=== PATIENT | female | born 1950 | race Caucasian/White ===

== ENCOUNTER → 2019-07-30 | Outpatient (CLI) | payer OTHER ==
--- NOTE | 2019-07-30 12:52 | RAD ---
EXAM: CHEST PA LATERAL INDICATION: Cough, history of breast cancer.. TECHNIQUE: PA and lateral views COMPARISON: None FINDINGS: The heart size is normal. The great vessels appear unremarkable. There is no hilar or mediastinal mass. The lungs are clear. There is no pleural effusion or pneumothorax. There are no significant osseous abnormalities. Chest soft tissues show surgical clips in the right breast and axilla. IMPRESSION: No active cardiopulmonary disease, status post right lumpectomy and axillary surgery. Electronically signed by: Ruma Jennings MD (07/30/2019 12:49 PM) [id number]
== END | disposition home or self-care (01) ==
LOC: RAD 12:17
PROVIDERS: ATTEND Radiology Radiation Oncology
DX: C50.411 Malignant neoplasm of upper-outer quadrant of right female breast (principal)
CPT/HCPCS: 71046